=== PATIENT | female | born 1955 | race Caucasian/White ===

== ENCOUNTER 2018-06-24 19:02 | Inpatient (IN) ==
[2018-06-24 19:46] LABS: Basophils % 0.2 % (0.0-0.8); Eosinophils % 0.2 % (0.00-10.9); Hemoglobin 10.5 GM/DL (12.0-16.0); Immature Granulocytes % 0.5 %; Immature Granulocytes Absolute 0.05 #; Lymphocytes # 1.3 10*3/uL (1.4-4.0); Mean Corpuscular HGB Conc 32.8 GM/DL (32-36); Mean Corpuscular Volume 86.5 FL (87-102); Mean Platelet Volume 9.8 FL (9.6-12.0); Monocytes % 10.7 % (1.7-12.7); Neutrophils % 76.4 % (38.7-73.9); Platelet Count 301 T/CUMM (130-400); Red Cell Distribution Width 13.6 % (9.3-17.3); White Blood Count 10.4 T/CUMM (4-12)
[2018-06-24 20:03] LABS: Albumin 3.2 G/DL (3.4-5.0); Bilirubin,Total 0.7 MG/DL (0.2-1.0); Total Protein 7.6 G/DL (6.4-8.3)
[2018-06-24] MEDS ORDERED: ONDANSETRON 4 MG/2 ML VIAL IV STA (21:06)
[2018-06-24] MEDS ORDERED: SODIUM CHLORIDE 0.9% 1,000 ML IV STA (21:45)
[2018-06-24 22:56] LABS: Apearance,Urine Slightly Hazy (Clear); Bilirubin,Urine Negative (Negative); Blood, Urine Small mg/dL (Negative); Glucose,Urine (UA) Negative (Negative); Ketones,Urine 5 mg/dL (Negative); Nitrite,Urine Negative (Negative); Protein,Urine 30 MG/DL; Urine Color Yellow (Yellow); Urine Specific Gravity 1.008 (1.001-1.035); Urine Urobilinogen < 2.0 EU/DL (0.2-1.0)
[2018-06-24 23:03] LABS: Bacteria,Urine Few /HPF (Few); RBC,Urine <1 /HPF (0-4); Squamous Epithelial Cell,Urine Few /HPF (0-10); WBC,Urine <1 /HPF (0-6)
[2018-06-24] MEDS ORDERED: KETOROLAC 30 MG/1 ML VIAL IV STA (23:25)
[2018-06-24] MEDS ORDERED: ONDANSETRON 4 MG/2 ML VIAL IV PRN (23:58)
[2018-06-25] MEDS: SODIUM CHLORIDE 0.9% 1,000 ML IV SCH ×2 (01:42→17:17)
[2018-06-25] MEDS: ACETAMINOPHEN 325 MG TABLET PO PRN ×2 (02:04→16:42)
[2018-06-25 07:33] LABS: Albumin 2.7 G/DL (3.4-5.0); Bilirubin,Total 1.8 MG/DL (0.2-1.0); Calcium 8.4 MG/DL (8.5-10.1); Osmolality,Calculated 285.1 MOS/KG (273-304); Total Protein 6.5 G/DL (6.4-8.3)
[2018-06-25] MEDS: PANTOPRAZOLE 40 MG TABLET PO SCH (08:22)
[2018-06-25] MEDS: POTASSIUM CHLORIDE RIDER 10 MEQ in PREMIX 1 EACH IV PRN ×5 (12:10→17:17)
[2018-06-25] MEDS ORDERED: cefTRIAXone 1,000 MG in SYRINGE 1 EACH IV SCH (16:00)
[2018-06-26] MEDS: ACETAMINOPHEN 325 MG TABLET PO PRN (00:40)
[2018-06-26] MEDS ORDERED: ACETAMINOPHEN 500 MG TABLET PO PRN (02:26)
[2018-06-26 06:36] LABS: Risk Ratio 2.69; VLDL CHOLESTEROL 20.6 MG/DL
[2018-06-26] MEDS: SODIUM CHLORIDE 0.9% 1,000 ML IV SCH ×2 (07:58→23:21)
[2018-06-26] MEDS: PANTOPRAZOLE 40 MG TABLET PO SCH (07:59)
[2018-06-26] MEDS: POTASSIUM CHLORIDE RIDER 10 MEQ in PREMIX 1 EACH IV PRN (08:00)
[2018-06-26] MEDS ORDERED: PIPERACILLIN/TAZOBACTAM 3,375 MG in SODIUM CHLORIDE 0.9% 100 ML IV SCH (12:30)
[2018-06-26] MEDS: ATORVASTATIN 40 MG TABLET PO SCH (12:45)
[2018-06-26] MEDS: MEROPENEM 500 MG in SYRINGE 1 EACH IV SCH ×2 (13:43→21:02)
[2018-06-26] MEDS: METOPROLOL TARTRATE 25 MG TABLET PO SCH (21:02)
[2018-06-27 06:02] LABS: Basophils % 0.4 % (0.0-0.8); Eosinophils # 0.1 10*3/uL (0.0-0.87); Eosinophils % 1.5 % (0.00-10.9); Hematocrit 27.6 VOL% (35.7-47.0); Hemoglobin 8.7 GM/DL (12.0-16.0); Immature Granulocytes % 0.3 %; Immature Granulocytes Absolute 0.02 #; Lymphocytes # 1.1 10*3/uL (1.4-4.0); Lymphocytes % 15.5 % (21.3-54.2); Mean Corpuscular HGB Conc 31.5 GM/DL (32-36); Mean Corpuscular Volume 89.9 FL (87-102); Mean Platelet Volume 9.7 FL (9.6-12.0); Monocytes % 9.2 % (1.7-12.7); Neutrophils % 73.1 % (38.7-73.9); Platelet Count 264 T/CUMM (130-400); Red Blood Count 3.07 MC/CUMM (3.8-5.5); White Blood Count 6.8 T/CUMM (4-12)
[2018-06-27] MEDS: MEROPENEM 500 MG in SYRINGE 1 EACH IV SCH ×3 (06:04→21:26)
[2018-06-27 06:14] LABS: Calcium 8.3 MG/DL (8.5-10.1); Osmolality,Calculated 281.1 MOS/KG (273-304)
[2018-06-27 07:00] LABS: Anisocytosis Slight; Microcytosis 1+
[2018-06-27 07:01] LABS: Ovalocytes Slight; Platelet Estimate Normal
[2018-06-27] MEDS ORDERED: LISINOPRIL/HCTZ 20-12.5 MG TABLET PO SCH (09:00)
[2018-06-27] MEDS: METOPROLOL TARTRATE 25 MG TABLET PO SCH ×2 (09:05→20:14)
[2018-06-27] MEDS: PANTOPRAZOLE 40 MG TABLET PO SCH (09:06)
[2018-06-27] MEDS: ATORVASTATIN 40 MG TABLET PO SCH (09:06)
[2018-06-27] MEDS: POTASSIUM CHLORIDE RIDER 10 MEQ in PREMIX 1 EACH IV PRN ×5 (09:10→17:30)
[2018-06-27] MEDS: SODIUM CHLORIDE 0.9% 1,000 ML IV SCH (13:11)
[2018-06-27] MEDS ORDERED: POTASSIUM CHLORIDE 20 MEQ TABLET PO ONE (13:19)
[2018-06-28 00:01] LABS: CDT Result Negative (Negative); CDT Specimen Source STOOL
[2018-06-28] MEDS: SODIUM CHLORIDE 0.9% 1,000 ML IV SCH (02:23)
[2018-06-28] MEDS: MEROPENEM 500 MG in SYRINGE 1 EACH IV SCH ×3 (05:01→21:37)
[2018-06-28 05:32] LABS: Basophils % 0.4 % (0.0-0.8); Eosinophils # 0.2 10*3/uL (0.0-0.87); Eosinophils % 3.4 % (0.00-10.9); Hematocrit 26.9 VOL% (35.7-47.0); Hemoglobin 8.6 GM/DL (12.0-16.0); Immature Granulocytes % 0.4 %; Immature Granulocytes Absolute 0.02 #; Lymphocytes # 1.3 10*3/uL (1.4-4.0); Lymphocytes % 25.9 % (21.3-54.2); Mean Corpuscular Volume 89.4 FL (87-102); Mean Platelet Volume 10.2 FL (9.6-12.0); Monocytes % 9.3 % (1.7-12.7); Neutrophils % 60.6 % (38.7-73.9); Platelet Count 259 T/CUMM (130-400); Red Blood Count 3.01 MC/CUMM (3.8-5.5); Red Cell Distribution Width 14.4 % (9.3-17.3); White Blood Count 5.1 T/CUMM (4-12)
[2018-06-28 05:50] LABS: Calcium 8.2 MG/DL (8.5-10.1); Osmolality,Calculated 284.8 MOS/KG (273-304)
[2018-06-28 06:41] LABS: Band Neutrophils 12 % (0-10); Lymphocytes 29 % (20-55); Platelet Estimate Normal; Segmented Neutrophils 53 % (50-85); Total Cells Counted 100
[2018-06-28 06:42] LABS: Anisocytosis Slight
[2018-06-28 06:43] LABS: Poikilocytosis Slight
[2018-06-28] MEDS: METOPROLOL TARTRATE 25 MG TABLET PO SCH ×2 (08:35→21:37)
[2018-06-28] MEDS: ATORVASTATIN 40 MG TABLET PO SCH (08:36)
[2018-06-28] MEDS: PANTOPRAZOLE 40 MG TABLET PO SCH (08:36)
[2018-06-28] MEDS: POTASSIUM CHLORIDE RIDER 10 MEQ in PREMIX 1 EACH IV PRN ×2 (08:40→11:02)
[2018-06-28] MEDS: POTASSIUM CHLORIDE 20 MEQ TABLET PO PRN ×2 (14:22→17:00)
[2018-06-29] MEDS: MEROPENEM 500 MG in SYRINGE 1 EACH IV SCH ×3 (05:23→21:14)
[2018-06-29] MEDS: METOPROLOL TARTRATE 25 MG TABLET PO SCH ×2 (09:23→21:16)
[2018-06-29] MEDS: ATORVASTATIN 40 MG TABLET PO SCH (09:23)
[2018-06-29] MEDS: PANTOPRAZOLE 40 MG TABLET PO SCH (09:23)
[2018-06-30 05:31] LABS: Basophils % 0.4 % (0.0-0.8); Eosinophils # 0.2 10*3/uL (0.0-0.87); Eosinophils % 4.2 % (0.00-10.9); Hematocrit 26.1 VOL% (35.7-47.0); Hemoglobin 8.2 GM/DL (12.0-16.0); Immature Granulocytes % 0.8 %; Immature Granulocytes Absolute 0.04 #; Lymphocytes # 1.5 10*3/uL (1.4-4.0); Lymphocytes % 29.2 % (21.3-54.2); Mean Corpuscular HGB Conc 31.4 GM/DL (32-36); Mean Corpuscular Volume 90.3 FL (87-102); Mean Platelet Volume 9.9 FL (9.6-12.0); Monocytes % 8.5 % (1.7-12.7); Neutrophils % 56.9 % (38.7-73.9); Platelet Count 317 T/CUMM (130-400); Red Blood Count 2.89 MC/CUMM (3.8-5.5); Red Cell Distribution Width 14.2 % (9.3-17.3)
[2018-06-30 06:00] LABS: Calcium 8.5 MG/DL (8.5-10.1); Osmolality,Calculated 288.6 MOS/KG (273-304)
[2018-06-30] MEDS: MEROPENEM 500 MG in SYRINGE 1 EACH IV SCH (06:03)
[2018-06-30 07:59] VITALS: BP 149/73
[2018-06-30] MEDS: PANTOPRAZOLE 40 MG TABLET PO SCH (08:49)
[2018-06-30] MEDS: ATORVASTATIN 40 MG TABLET PO SCH (08:49)
[2018-06-30] MEDS: METOPROLOL TARTRATE 25 MG TABLET PO SCH (08:51)
== END 2018-06-30 13:31 | disposition home or self-care (01) | DRG 392 ==
LOC: N.EDINP 19:02 → N.ED 19:02 → N.5E 06-25 00:23
PROVIDERS: ADMIT Internal Medicine; ATTEND Internal Medicine